=== PATIENT | male | born 1960 | race Caucasian/White ===

== ENCOUNTER 2021-08-12 08:01 | Day surgery (SDC) | payer MEDICAID ==
[~2021-08-12] VITALS: Ht 190.5 cm; Wt 94.4 kg
[2021-08-12] VITALS (9 sets, daily range): BP systolic 127–153; BP diastolic 88–108; PULSE 52–81; TEMP 97
[2021-08-12 13:28] LABS: HEMOGLOBIN 12.5 g/dl (13.5-18.0); MEAN CELL VOLUME 92 fl (80.0-100.0); MEAN CORPUSCULAR HEMOGLOBIN 31 pg (27.0-31.0); MEAN CORPUSCULAR HGB CONC 34 g/dl (33.0-37.0); MEAN PLATELET VOLUME 9.7 fl (7.4-10.4); PLATELET COUNT 313 K/mm3 (130-400); RED BLOOD COUNT 4.02 M/mm3 (4.20-5.60); REDCELL DISTRIBUTION WIDTH-CV 13.2 % (11.5-14.5)
[2021-08-12 13:36] LABS: INR 1.2 (0.8-3.0); PROTHROMBIN TIME 12.8 SECONDS (9.7-12.8)
[2021-08-12 13:41] LABS: CALCIUM 9.6 mg/dL (8.4-10.2); CREATININE, serum 1.52 mg/dL (0.72-1.25); POTASSIUM 3.9 mmol/L (3.5-4.5)
[2021-08-12] MEDS ORDERED: PACERONE200 MG PO (13:57)
[2021-08-12] MEDS ORDERED: ELIQUIS 5MG PO (13:57)
[2021-08-12] MEDS ORDERED: LIPITOR 40MG TA40 MG PO (14:01)
[2021-08-12] MEDS ORDERED: ZESTRIL 20MG TA20 MG PO (14:06)
[2021-08-12] MEDS ORDERED: MAALOX ADVANCE148 ML PO (14:06)
[2021-08-12] MEDS ORDERED: GOOD NEIGH1200 MG/15 PO (14:07)
[2021-08-12] MEDS ORDERED: TYLENOL 325MG325 MG PO (14:07)
[2021-08-12] MEDS ORDERED: DUO-KAPS1 CAP PO (14:08)
[2021-08-12] MEDS ORDERED: ASPIRIN 81M81 MG/TA2 PO (14:08)
[2021-08-12] MEDS ORDERED: IMDUR 30MG30 MG/TAB PO (14:46)
--- NOTE | 2021-08-12 17:07 | NUR ---
Discharge instructions reviewed with pt sister,who is DPOA.Per sister she verbalizes understanding.report called to [facility] to Marianna Davis.
--- NOTE | 2021-08-12 17:56 | NUR ---
Pt escorted out via wheelchair to [facility] van.
== END 2021-08-12 18:06 ==
LOC: COL.CAR 08:01
PROVIDERS: Internal Medicine Interventional Cardiology
DX: I25.10 Atherosclerotic heart disease of native coronary artery without angina pectoris (principal); I48.0 Paroxysmal atrial fibrillation; I10 Essential (primary) hypertension; R94.39 Abnormal result of other cardiovascular function study; E78.5 Hyperlipidemia, unspecified; Z86.73 Personal history of transient ischemic attack (TIA), and cerebral infarction without residual deficits; Z79.02 Long term (current) use of antithrombotics/antiplatelets; Z79.899 Other long term (current) drug therapy; Z79.82 Long term (current) use of aspirin
CPT/HCPCS: C1769; J1644; J2250; J3010; Q9967

== ENCOUNTER 2022-05-23 08:12 | Day surgery (SDC) | payer MEDICAID ==
[~2022-05-23] VITALS: Ht 190.5 cm; Wt 97.7 kg
[~2022-05-23 08:12] MED LIST: ASPIRIN 81M81 MG/TA2 PO; DUO-KAPS1 CAP PO; ELIQUIS 5MG PO; GOOD NEIGH1200 MG/15 PO; IMDUR 30MG30 MG/TAB PO; LIPITOR 40MG TA40 MG PO; MAALOX ADVANCE148 ML PO; PACERONE200 MG PO; TYLENOL 325MG325 MG PO; ZESTRIL 20MG TA20 MG PO
[2022-05-23 09:06] VITALS: BP 111/64; PULSE 74; TEMP 97.3
[2022-05-23 10:24] VITALS: BP 113/66; PULSE 80; TEMP 96.9
--- NOTE | 2022-05-23 10:24 | NUR ---
AWAKE/ALERT. RESP CLEAR, SPONTANEOUS. NO CHANGE FROM PRE PROCEDURE ASSESSMENT. PATIENT EXPRESSES COMFORT. DISCHARGE INSTRUCTIONS REVIEWED. COPY OF PROCEDURE INFORMATION PROVIDED TO PATIENT. 1158 PATIENT ASSISTED WITH DRESSING AND TRANSFER TO WHEELCHAIR WITH ASSISTANCE FROM TRANSPORT CLERICAL WAREHOUSEMAN.
== END 2022-05-23 10:40 | disposition home or self-care (01) ==
LOC: SDCO 08:12
DX: R31.0 Gross hematuria (principal)